=== PATIENT | male | born 1965 | race African-American/Black ===

== ENCOUNTER 2022-03-18 19:22 | Inpatient (IN) | payer MEDICAID ==
[~2022-03-18] VITALS: Ht 190.5 cm; Wt 162.8 kg
[~2022-03-18 19:22] MED LIST: ALBU6.7H15 INH; ASPI-1497 PO; ATOR20TA65 PO; BENA40TA9 PO; FURO40TA5 MT; HYDR-4009 PO; INSU100I24 SQ; INSU100V34 SQ; METF-874 MT; OMEP20CA14 PO
[2022-03-18 21:20] LABS: BASOPHILS % 0.6 % (0.0-2.0); EOSINOPHILS % 4.4 % (0.0-5.0); HEMATOCRIT. 31.9 % (42.0-52.0); HEMOGLOBIN. 10.4 g/dL (14.0-18.0); LYMPHOCYTES % 24.9 % (20.0-50.0); MEAN CORPUSCULAR HEMOGLOBIN 29.6 pg (28.0-32.0); MEAN CORPUSCULAR VOLUME 90.6 fL (80.0-94.0); MEAN PLATELET VOLUME 9.4 fl (7.4-10.4); MONOCYTES % 9.2 % (2.0-8.0); NEUTROPHILS % 60.9 % (40.0-76.0); PLATELET 220 x1000/uL (130-400); RED BLOOD CELL COUNT 3.52 mill/uL (4.7-6.1); RED CELL DISTRIBUTION WIDTH 14.7 % (11.6-14.6)
[2022-03-18 21:26] LABS: CHLORIDE 107 mEq/L (98-107)
[2022-03-18] MEDS ORDERED: SODIUM CHLORIDE 0.9% 1,000 ML IV NR (21:45)
[2022-03-18 22:22] LABS: CREATINE KINASE 1632 IU/L (39-308)
[2022-03-18] MEDS ORDERED: MORPHINE SULFATE 4 MG/ML CPJ (NOT FOR IM USE) IV NR (22:45)
[2022-03-19] MEDS ORDERED: NALOXONE HCL 0.4 MG/ML 1ML VIAL IV PRN (03:15)
[2022-03-19] MEDS: HYDROCODONE/ACETAMINOPHEN 10/325MG TABLET PO PRN ×4 (04:23→18:55)
[2022-03-19 09:10] VITALS: BP 128/85
[2022-03-19] MEDS ORDERED: DEXTROSE 50% WATER 50ML SYRINGE IV PRN (09:15)
[2022-03-19] MEDS ORDERED: ONDANSETRON HCL 4MG/2ML INJ IV PRN (09:15)
[2022-03-19] MEDS ORDERED: ACETAMINOPHEN 325MG TABLET PO PRN (09:15)
[2022-03-19 10:00] VITALS: BP 125/84
[2022-03-19] MEDS: AMLODIPINE 10MG TABLET PO SCH (11:49)
[2022-03-19 12:00] VITALS: BP 132/85
[2022-03-19] MEDS: LEVOFLOXACIN 250MG TABLET PO SCH (12:29)
[2022-03-19] MEDS: BLOOD SUGAR DIAGNOSTIC STRIP TEST SCH ×3 (12:46→21:24)
[2022-03-19] MEDS: INSULIN LISPRO 100 UNITS/ML SUBCUT SCH ×3 (13:17→21:23)
[2022-03-19] MEDS: SODIUM CHLORIDE 0.9% 1,000 ML IV SCH (13:18)
[2022-03-19] MEDS ORDERED: VANCOMYCIN 2,000 MG in DEXT 5% WATER 500 ML IV SCH (14:00)
[2022-03-19 16:00] VITALS: BP 126/82
[2022-03-19 20:00] VITALS: BP 147/81
[2022-03-20] VITALS: BP 140/80
[2022-03-20 04:00] VITALS: BP 135/67
[2022-03-20] MEDS: BLOOD SUGAR DIAGNOSTIC STRIP TEST SCH ×4 (07:20→21:00)
[2022-03-20 08:00] VITALS: BP 146/74
[2022-03-20] MEDS: HYDROCODONE/ACETAMINOPHEN 10/325MG TABLET PO PRN ×3 (08:58→22:51)
[2022-03-20] MEDS: AMLODIPINE 10MG TABLET PO SCH (08:58)
[2022-03-20] MEDS: INSULIN LISPRO 100 UNITS/ML SUBCUT SCH ×4 (09:00→23:06)
[2022-03-20] MEDS: INSULIN GLARGINE 100 UNITS/ML SUBCUT SCH ×2 (10:00→23:07)
[2022-03-20 10:54] LABS: CHLORIDE 104 mEq/L (98-107)
[2022-03-20 11:03] LABS: CREATINE KINASE 812 IU/L (39-308)
[2022-03-20 12:00] VITALS: BP 152/82
[2022-03-20] MEDS: LEVOFLOXACIN 250MG TABLET PO SCH (13:12)
[2022-03-20] MEDS: SODIUM CHLORIDE 0.9% 1,000 ML IV SCH (15:18)
[2022-03-20] MEDS: VANCOMYCIN 1,750 MG in DEXT 5% WATER 500 ML IV SCH (15:18)
[2022-03-20 16:00] VITALS: BP 159/83
[2022-03-20 20:00] VITALS: BP 121/69
[2022-03-21] VITALS: BP 123/69
[2022-03-21] MEDS: VANCOMYCIN 1,750 MG in DEXT 5% WATER 500 ML IV SCH (03:58)
[2022-03-21] MEDS: BLOOD SUGAR DIAGNOSTIC STRIP TEST SCH ×3 (07:20→17:20)
[2022-03-21] MEDS: INSULIN LISPRO 100 UNITS/ML SUBCUT SCH ×3 (07:50→17:50)
[2022-03-21 08:00] VITALS: BP 138/67
[2022-03-21] MEDS: AMLODIPINE 10MG TABLET PO SCH (09:06)
[2022-03-21] MEDS: HYDROCODONE/ACETAMINOPHEN 10/325MG TABLET PO PRN ×2 (09:06→16:44)
[2022-03-21] MEDS ORDERED: INSULIN GLARGINE 100 UNITS/ML SUBCUT SCH (10:00)
[2022-03-21 12:00] VITALS: BP 142/76
[2022-03-21] MEDS: LEVOFLOXACIN 250MG TABLET PO SCH (12:53)
[2022-03-21] MEDS ORDERED: LINE600T14 PO (14:50)
[2022-03-21] MEDS ORDERED: LEVO750T46 MT (14:50)
[2022-03-21 16:00] VITALS: BP 151/81
[2022-03-21] MEDS ORDERED: FUROSEMIDE 40MG/4ML VIAL IVP NR (17:15)
[2022-03-21] MEDS ORDERED: VANCOMYCIN 1,750 MG in DEXT 5% WATER 500 ML IV SCH (18:00)
[2022-03-21 18:31] VITALS: BP 151/81
== END 2022-03-21 19:27 | disposition home or self-care (01) | DRG 351 ==
LOC: ER 19:22 → MICUSO 03-19 01:19 → 4WST 03-19 09:10 → 6EST 03-19 18:16
PROVIDERS: ADMIT Internal Medicine; ATTEND Internal Medicine
DX: M62.82 Rhabdomyolysis (principal); N17.9 Acute kidney failure, unspecified; E11.69 Type 2 diabetes mellitus with other specified complication; E11.22 Type 2 diabetes mellitus with diabetic chronic kidney disease; M86.8X7 Other osteomyelitis, ankle and foot; D64.9 Anemia, unspecified; N18.9 Chronic kidney disease, unspecified; I12.9 Hypertensive chronic kidney disease with stage 1 through stage 4 chronic kidney disease, or unspecified chronic kidney disease; E66.01 Morbid (severe) obesity due to excess calories; G47.30 Sleep apnea, unspecified; Z96.649 Presence of unspecified artificial hip joint; E78.5 Hyperlipidemia, unspecified; E78.00 Pure hypercholesterolemia, unspecified; J45.909 Unspecified asthma, uncomplicated; Z82.49 Family history of ischemic heart disease and other diseases of the circulatory system; Z88.0 Allergy status to penicillin; Z88.8 Allergy status to other drugs, medicaments and biological substances; Z79.84 Long term (current) use of oral hypoglycemic drugs; Z79.4 Long term (current) use of insulin; Z79.899 Other long term (current) drug therapy; Z71.3 Dietary counseling and surveillance; Z68.41 Body mass index [BMI] 40.0-44.9, adult
CPT/HCPCS: 36415; 80048; 80053; 80202; 82550; 82962; 85025; 85651; 93970; 99285; J1815; J2270; J3370; J7030; J7060

== ENCOUNTER 2025-08-06 20:17 | Inpatient (IN) | payer MEDICAID ==
[~2025-08-06] VITALS: Ht 193 cm; Wt 131.5 kg
[~2025-08-06 20:17] MED LIST changes: -BENA40TA9 PO; +BENA40TA91 PO; +LEVO750T68 MT; +LINE600T14 PO; +METF-1150 MT; -METF-874 MT
[2025-08-06 20:31] VITALS: O2SAT 98
[2025-08-06 20:48] LABS: BASOPHILS % 1.0 % (0.0-2.0); EOSINOPHILS % 3.8 % (0.0-5.0); HEMATOCRIT. 32.7 % (42.0-52.0); HEMOGLOBIN. 10.7 g/dL (14.0-18.0); LYMPHOCYTES % 37.0 % (20.0-50.0); MEAN PLATELET VOLUME 9.1 fl (7.4-10.4); MONOCYTES % 6.7 % (2.0-8.0); NEUTROPHILS % 51.5 % (40.0-76.0); PLATELET 309 x1000/uL (130-400); RED BLOOD CELL COUNT 3.58 mill/uL (4.7-6.1); RED CELL DISTRIBUTION WIDTH 14.3 % (11.6-14.6)
[2025-08-06 21:02] LABS: CREATININE 1.9 mg/dL (0.6-1.3); UREA NITROGEN BLOOD 38.0 mg/dL (9-23)
[2025-08-07 00:01] LABS: TROPONIN I HIGH SENSITIVITY < 4 ng/L (3.0-53)
[2025-08-07 00:02] LABS: ASPARTATE AMINOTRANSFERASE 13 IU/L (<34); BILIRUBIN DIRECT < 0.1 mg/dL (<=3.0); BILIRUBIN TOTAL 0.2 mg/dL (0.1-1.0)
[2025-08-07 00:03] LABS: PROTEIN TOTAL 7.8 g/dL (6.0-8.3)
[2025-08-07] MEDS: CALCIUM GLUCONATE 100MG/ML 10ML VIAL IV ONE (00:43)
[2025-08-07] MEDS: INSULIN REGULAR (HUMULIN R) 1000UNITS/10ML VIAL IV ONE (00:44)
[2025-08-07] MEDS: DEXTROSE 50% WATER 50ML SYRINGE IV ONE (00:45)
[2025-08-07] MEDS: HYDROCODONE/ACETAMINOPHEN 10/325MG TABLET PO NR (00:59)
[2025-08-07 01:24] LABS: CLARITY URINE CLOUDY (CLEAR); COLOR URINE YELLOW (YELLOW); GLUCOSE URINE NEGATIVE (NEGATIVE); KETONES URINE NEGATIVE (NEGATIVE); LEUKOCYTE ESTERASE URINE 2+ (NEGATIVE); NITRITE URINE NEGATIVE (NEGATIVE); OCCULT BLOOD URINE 1+ (NEGATIVE); PH URINE 5.0 (4.5-8.0); PROTEIN URINE 1+ (NEGATIVE); SPECIFIC GRAVITY URINE 1.017 (1.005-1.030); UROBILINOGEN URINE 0.2 E.U./dL (0.2-1.0)
[2025-08-07 01:35] LABS: BACTERIA URINE 1+; RBC URINE 0-2 /hpf (0-2); SQUAMOUS EPITHELIAL CELL URINE 1+ /lpf (RARE/1+); WBC URINE 50-100 /hpf (0-2)
[2025-08-07 03:31] VITALS: BP 155/71; PULSE 91; RESP 13; TEMP 36.696
[2025-08-07] MEDS ORDERED: HYDR25TA PO (04:48)
[2025-08-07] MEDS ORDERED: EMPA25TA PO (04:48)
[2025-08-07] MEDS ORDERED: ASPI-1406 PO (04:48)
[2025-08-07] MEDS ORDERED: MONT-39 PO (04:48)
[2025-08-07] MEDS ORDERED: FERR325T30 PO (04:48)
[2025-08-07] MEDS ORDERED: NIFE-72 PO (04:48)
[2025-08-07] MEDS ORDERED: ONDANSETRON HCL 4MG/2ML INJ IV PRN (05:00)
[2025-08-07] MEDS ORDERED: CLONIDINE 0.1MG TABLET PO PRN (05:00)
[2025-08-07] MEDS ORDERED: DEXTROSE 50% WATER 50ML SYRINGE IV PRN ×2 (05:00→15:30)
[2025-08-07] MEDS ORDERED: ACETAMINOPHEN 325MG TABLET PO PRN ×2 (05:00→15:30)
[2025-08-07] MEDS ORDERED: NALOXONE HCL 0.4MG/ML VIAL IV PRN (05:15)
[2025-08-07] MEDS: BLOOD SUGAR DIAGNOSTIC STRIP TEST SCH ×2 (07:39→17:23)
[2025-08-07 08:00] VITALS: BP 119/69; PULSE 91; RESP 20; TEMP 37; O2SAT 100
[2025-08-07] MEDS: INSULIN LISPRO 100 UNITS/ML SUBCUT SCH ×2 (08:10→18:02)
[2025-08-07] MEDS: HEPARIN 5000 UNITS/ML VIAL SUBCUT SCH (08:47)
[2025-08-07] MEDS: METFORMIN HCL 500MG TABLET PO SCH (08:47)
[2025-08-07] MEDS: FUROSEMIDE 40MG TABLET PO SCH (08:48)
[2025-08-07] MEDS: MONTELUKAST SODIUM 10MG TABLET PO SCH (08:48)
[2025-08-07] MEDS: PANTOPRAZOLE 40MG DR TABLET PO SCH (08:48)
[2025-08-07] MEDS: EMPAGLIFLOZIN 25MG TABLET PO SCH (08:48)
[2025-08-07] MEDS: ASPIRIN 81MG EC TABLET PO SCH (08:48)
[2025-08-07] MEDS: FERROUS SULFATE 325MG TABLET PO SCH (08:48)
[2025-08-07] MEDS: LISINOPRIL 40MG TABLET PO SCH (08:49)
[2025-08-07] MEDS: NIFEDIPINE XL 60MG TAB PO SCH (08:50)
[2025-08-07] MEDS: INSULIN GLARGINE 100 UNITS/ML SUBCUT SCH ×2 (10:00→21:23)
[2025-08-07 10:52] LABS: BASOPHILS % 1.1 % (0.0-2.0); EOSINOPHILS % 3.6 % (0.0-5.0); HEMATOCRIT. 30.6 % (42.0-52.0); HEMOGLOBIN. 10.1 g/dL (14.0-18.0); LYMPHOCYTES % 27.2 % (20.0-50.0); MEAN PLATELET VOLUME 9.3 fl (7.4-10.4); MONOCYTES % 8.7 % (2.0-8.0); NEUTROPHILS % 59.4 % (40.0-76.0); PLATELET 255 x1000/uL (130-400); RED BLOOD CELL COUNT 3.37 mill/uL (4.7-6.1); RED CELL DISTRIBUTION WIDTH 14.3 % (11.6-14.6)
[2025-08-07 11:17] LABS: CREATININE 1.6 mg/dL (0.6-1.3); UREA NITROGEN BLOOD 32.0 mg/dL (9-23)
[2025-08-07 12:00] VITALS: BP 119/69; PULSE 91; RESP 22; TEMP 37; O2SAT 90
[2025-08-07] MEDS: HYDROCODONE/ACETAMINOPHEN 10/325MG TABLET PO PRN (12:26)
[2025-08-07 16:00] VITALS: BP 110/60; PULSE 80; RESP 22; TEMP 36.7; O2SAT 90
[2025-08-07 20:00] VITALS: BP 104/60; PULSE 89; RESP 20; TEMP 36.4; O2SAT 100
[2025-08-07] MEDS: ATORVASTATIN CALCIUM 20MG TABLET PO SCH (21:15)
[2025-08-08] VITALS: BP 100/41; PULSE 86; RESP 20; TEMP 36.7; O2SAT 100
[2025-08-08 04:00] VITALS: BP 100/51; PULSE 87; RESP 18; TEMP 36.4; O2SAT 97
[2025-08-08 08:16] VITALS: BP 100/57; PULSE 90; RESP 18; TEMP 36.6; O2SAT 95
[2025-08-08] MEDS: PANTOPRAZOLE 40MG DR TABLET PO SCH (08:21)
[2025-08-08 10:34] LABS: BASOPHILS % 1.0 % (0.0-2.0); EOSINOPHILS % 2.6 % (0.0-5.0); HEMATOCRIT. 32.8 % (42.0-52.0); HEMOGLOBIN. 10.8 g/dL (14.0-18.0); LYMPHOCYTES % 29.8 % (20.0-50.0); MEAN PLATELET VOLUME 9.9 fl (7.4-10.4); MONOCYTES % 8.0 % (2.0-8.0); NEUTROPHILS % 58.6 % (40.0-76.0); PLATELET 275 x1000/uL (130-400); RED BLOOD CELL COUNT 3.62 mill/uL (4.7-6.1); RED CELL DISTRIBUTION WIDTH 14.4 % (11.6-14.6)
[2025-08-08 11:01] LABS: CREATININE 1.9 mg/dL (0.6-1.3); UREA NITROGEN BLOOD 37.0 mg/dL (9-23)
[2025-08-08 12:00] VITALS: BP 109/56; PULSE 84; RESP 18; TEMP 36.5; O2SAT 98
[2025-08-08 16:48] VITALS: BP 117/64; PULSE 84; RESP 20; TEMP 37.2; O2SAT 96
[2025-08-08] MEDS: SODIUM ZIRCONIUM CYCLOSILICATE 10GM/PACKET PO SCH (16:52)
[2025-08-08] MEDS: SODIUM ZIRCONIUM CYCLOSILICATE 10GM/PACKET ONE ×2 (18:22→18:32)
[2025-08-08 20:00] VITALS: BP 111/58; PULSE 91; RESP 20; TEMP 36.9; O2SAT 96
[2025-08-09 04:09] VITALS: BP 126/62; PULSE 83; RESP 20; TEMP 36.9; O2SAT 97
[2025-08-09 08:49] VITALS: BP 116/72; PULSE 94; RESP 20; TEMP 36.5; O2SAT 97
[2025-08-09] MEDS: INSULIN GLARGINE 100 UNITS/ML SUBCUT SCH (10:00)
[2025-08-09 12:00] VITALS: BP 121/82; PULSE 89; RESP 20; TEMP 37; O2SAT 100
[2025-08-09 13:03] VITALS: BP 121/82; PULSE 89; RESP 20; TEMP 37; O2SAT 100
[2025-08-09 13:10] VITALS: BP 121/82; PULSE 85; RESP 20; TEMP 98.2
== END 2025-08-09 14:10 | disposition home or self-care (01) | DRG 425 ==
LOC: ER 20:17 → 7EST 08-07 00:37 → EDBEDREQ 08-07 00:52 → EDBEDREQTM 08-07 00:52 → EDBEDREQDT 08-07 00:52 → ENRESERV 08-07 01:17 → 7EST 08-07 02:11 → 7WST 08-07 02:31
PROVIDERS: ADMIT Internal Medicine; ATTEND Internal Medicine
DX: E87.5 Hyperkalemia (principal); I50.9 Heart failure, unspecified; N17.9 Acute kidney failure, unspecified; E11.22 Type 2 diabetes mellitus with diabetic chronic kidney disease; N18.9 Chronic kidney disease, unspecified; E66.9 Obesity, unspecified; Z68.35 Body mass index [BMI] 35.0-35.9, adult; E11.621 Type 2 diabetes mellitus with foot ulcer; L97.529 Non-pressure chronic ulcer of other part of left foot with unspecified severity; E78.00 Pure hypercholesterolemia, unspecified; Z88.0 Allergy status to penicillin; Z82.49 Family history of ischemic heart disease and other diseases of the circulatory system
CPT/HCPCS: 36415; 71045; 80048; 80076; 81003; 82962; 83036; 83735; 83880; 84132; 84484; 85025; 87077; 87186; 93005; 99291; J0612; J1644; J1815